=== PATIENT | female | born 1965 | race African-American/Black ===

== ENCOUNTER 2019-09-16 02:15 | Inpatient (IN) ==
[2019-09-16] MEDS ORDERED: ACETAMINOPHEN 325 MG TABLET PO PRN (05:03)
[2019-09-16] MEDS ORDERED: ONDANSETRON 4 MG/2 ML VIAL IV PRN (05:03)
[2019-09-16] MEDS ORDERED: MORPHINE 4 MG/1 ML VIAL IV PRN (06:21)
[2019-09-16 06:24] LABS: Basophils # 0.1 10*3/uL (0.0-0.2); Basophils % 0.4 % (0.0-0.8); Eosinophils # 0.2 10*3/uL (0.0-0.87); Eosinophils % 1.6 % (0.00-10.9); Hematocrit 37.5 VOL% (35.7-47.0); Hemoglobin 11.8 GM/DL (12.0-16.0); Immature Granulocytes % 0.4 %; Immature Granulocytes Absolute 0.05 #; Lymphocytes # 1.9 10*3/uL (1.4-4.0); Lymphocytes % 15.7 % (21.3-54.2); Mean Corpuscular HGB Conc 31.5 GM/DL (32-36); Mean Corpuscular Volume 80.1 FL (87-102); Mean Platelet Volume 8.7 FL (9.6-12.0); Neutrophils % 71.9 % (38.7-73.9); Platelet Count 358 T/CUMM (130-400); Red Blood Count 4.68 MC/CUMM (3.8-5.5); Red Cell Distribution Width 13.8 % (9.3-17.3); White Blood Count 12.1 T/CUMM (4-12)
[2019-09-16 06:50] LABS: INR 1.1; PT Patient Result 11.4 SECS (9.6-12.2); Partial Thromboplastin Time 29.1 SECS (20.8-36.0)
[2019-09-16 06:52] LABS: Albumin 2.2 G/DL (3.4-5.0); Bilirubin,Total 0.8 MG/DL (0.2-1.0); Calcium 8.5 MG/DL (8.5-10.1); Osmolality,Calculated 272.8 MOS/KG (273-304)
[2019-09-16] MEDS ORDERED: hydrALAZINE 25 MG TABLET PO PRN (07:04)
[2019-09-16] MEDS ORDERED: ALBUTEROL 1.25 MG/3 ML NEB RESP TX PRN (07:17)
[2019-09-16] MEDS: PIPERACILLIN/TAZOBACTAM 3,375 MG in SODIUM CHLORIDE 0.9% 100 ML IV SCH ×2 (09:08→14:45)
[2019-09-16] MEDS: POTASSIUM CHLORIDE 20 MEQ TABLET PO PRN ×3 (12:28→16:40)
[2019-09-17] MEDS: PIPERACILLIN/TAZOBACTAM 3,375 MG in SODIUM CHLORIDE 0.9% 100 ML IV SCH ×3 (00:12→15:47)
[2019-09-17 14:48] LABS: Free T4 (Free Thyroxine) 1.42 NG/DL (0.76-1.46); Thyroid Stimulating Hormone 0.768 uIU/ml (0.358-3.74)
[2019-09-17] MEDS: PANTOPRAZOLE 40 MG TABLET PO SCH (15:46)
[2019-09-17] MEDS: DESITIN 4OZ/NYSTATIN 15 GRAM MIXTURE PASTE TOP SCH ×2 (15:47→20:32)
[2019-09-18] MEDS: PIPERACILLIN/TAZOBACTAM 3,375 MG in SODIUM CHLORIDE 0.9% 100 ML IV SCH ×3 (00:31→16:36)
[2019-09-18] MEDS ORDERED: PROMETHAZINE 25 MG/1 ML VIAL IM ONE (07:30)
[2019-09-18] MEDS ORDERED: GLYCOPYRROLATE 0.4 MG/2 ML VIAL IM ONE (07:30)
[2019-09-18] MEDS ORDERED: MEPERIDINE 50 MG/1 ML VIAL IM ONE (07:30)
[2019-09-18] MEDS ORDERED: LIDOCAINE 1% 20 ML VIAL MISC INJ ONE (08:00)
[2019-09-18] MEDS ORDERED: MIDAZOLAM 2 MG/2 ML VIAL IV ONE (08:00)
[2019-09-18] MEDS ORDERED: LIDOCAINE 2% VISCOUS 100 ML BOTTLE SWISH/SPIT ONE (08:00)
[2019-09-18] MEDS ORDERED: LIDOCAINE 2% 20 ML VIAL RESP TX ONE (08:00)
[2019-09-18] MEDS ORDERED: MIDAZOLAM 2 MG/2 ML VIAL ONE (09:17)
[2019-09-18] MEDS: DESITIN 4OZ/NYSTATIN 15 GRAM MIXTURE PASTE TOP SCH ×2 (10:34→21:59)
[2019-09-18] MEDS: PANTOPRAZOLE 40 MG TABLET PO SCH (15:24)
[2019-09-19] MEDS: PIPERACILLIN/TAZOBACTAM 3,375 MG in SODIUM CHLORIDE 0.9% 100 ML IV SCH ×3 (00:33→15:03)
[2019-09-19 02:36] LABS: Basophils # 0.1 10*3/uL (0.0-0.2); Basophils % 0.4 % (0.0-0.8); Eosinophils # 0.5 10*3/uL (0.0-0.87); Eosinophils % 4.6 % (0.00-10.9); Hematocrit 34.4 VOL% (35.7-47.0); Hemoglobin 10.6 GM/DL (12.0-16.0); Immature Granulocytes % 0.3 %; Immature Granulocytes Absolute 0.04 #; Lymphocytes # 1.9 10*3/uL (1.4-4.0); Lymphocytes % 15.6 % (21.3-54.2); Mean Corpuscular HGB Conc 30.8 GM/DL (32-36); Mean Corpuscular Volume 81.7 FL (87-102); Mean Platelet Volume 8.5 FL (9.6-12.0); Neutrophils % 70.1 % (38.7-73.9); Platelet Count 350 T/CUMM (130-400); Red Blood Count 4.21 MC/CUMM (3.8-5.5); Red Cell Distribution Width 13.9 % (9.3-17.3); White Blood Count 11.8 T/CUMM (4-12)
[2019-09-19 02:57] LABS: Albumin 1.9 G/DL (3.4-5.0); Bilirubin,Total 0.4 MG/DL (0.2-1.0); Calcium 8.2 MG/DL (8.5-10.1); Osmolality,Calculated 276.4 MOS/KG (273-304); Total Protein 7.4 G/DL (6.4-8.3)
[2019-09-19] MEDS: PANTOPRAZOLE 40 MG TABLET PO SCH (09:04)
[2019-09-19] MEDS: DESITIN 4OZ/NYSTATIN 15 GRAM MIXTURE PASTE TOP SCH ×2 (09:05→20:57)
[2019-09-19] MEDS: BUDESONIDE 0.5 MG/2 ML NEB RESP TX SCH (19:39)
[2019-09-20] MEDS: PIPERACILLIN/TAZOBACTAM 3,375 MG in SODIUM CHLORIDE 0.9% 100 ML IV SCH ×3 (00:45→15:43)
[2019-09-20 04:35] LABS: Basophils # 0.1 10*3/uL (0.0-0.2); Basophils % 0.5 % (0.0-0.8); Eosinophils # 0.6 10*3/uL (0.0-0.87); Eosinophils % 5.3 % (0.00-10.9); Hematocrit 33.9 VOL% (35.7-47.0); Hemoglobin 10.4 GM/DL (12.0-16.0); Immature Granulocytes % 0.6 %; Immature Granulocytes Absolute 0.07 #; Lymphocytes # 1.8 10*3/uL (1.4-4.0); Lymphocytes % 15.9 % (21.3-54.2); Mean Corpuscular HGB Conc 30.7 GM/DL (32-36); Mean Corpuscular Volume 82.1 FL (87-102); Mean Platelet Volume 8.7 FL (9.6-12.0); Monocytes % 10.2 % (1.7-12.7); Neutrophils % 67.5 % (38.7-73.9); Platelet Count 377 T/CUMM (130-400); Red Blood Count 4.13 MC/CUMM (3.8-5.5); Red Cell Distribution Width 13.9 % (9.3-17.3); White Blood Count 11.1 T/CUMM (4-12)
[2019-09-20 04:46] LABS: Calcium 8.5 MG/DL (8.5-10.1); Osmolality,Calculated 277.3 MOS/KG (273-304)
[2019-09-20] MEDS: BUDESONIDE 0.5 MG/2 ML NEB RESP TX SCH (07:44)
[2019-09-20] MEDS: DESITIN 4OZ/NYSTATIN 15 GRAM MIXTURE PASTE TOP SCH (09:12)
[2019-09-20] MEDS: PANTOPRAZOLE 40 MG TABLET PO SCH (09:12)
[2019-09-20 11:44] VITALS: BP 137/85
== END 2019-09-20 16:35 | disposition home or self-care (01) | DRG 166 ==
LOC: N.4E → SUATTDRO 04:03
PROVIDERS: ADMIT Internal Medicine; ATTEND Family Medicine
PROC: BRONCHB (2019-09-18 08:05)